=== PATIENT | male | born 1975 | race Caucasian/White ===

== ENCOUNTER → 2018-06-30 | Outpatient (CLI) | payer BC ==
--- NOTE | 2018-07-18 11:28 | ONC ---
[place] [address] RADIATION ONCOLOGY NOTE Name: PRIMO CUNHA Room: 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 HISTORY OF PRESENT ILLNESS: The patient is a 42-year-old gentleman who had enlarged right cervical lymph node about 6 months prior to diagnosis. He felt like he was swallowing reasonably well. He underwent an open biopsy of the right cervical lymph node by Dr. Greer and the final pathology revealed squamous cell carcinoma. He then underwent a direct laryngoscopy and biopsy by Dr. Leyva and the right tonsil was suspicious as a primary site, so the patient had a biopsy of the right superior tonsil. There was at least squamous cell carcinoma in situ. The patient had a neck CT on 04/29/2018, which revealed a 4.6 cm. x 3.4 cm.x 3.5 cm mass in the right submandibular area. There was no other enlarged lymphadenopathy. He had a PET scan on 05/27/2018, which revealed a hypermetabolic 1.5 cm mass with a maximum uptake of 11 at the right palatine tonsil consistent with a tonsillar malignancy. 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 There were 17 lymph nodes, none of which had malignancy and the margins were not involved with cancer. The lymph node that Dr. Greer resected had invasive squamous cell carcinoma that was well differentiated and that was removed on 05/05/2018. The size of that lymph node 3.6 cm and there was an area of extranodal extension that was 1 mm. He is still healing up from his operation and he presents to be considered for radiation therapy. The cancer conference recommended considering radiation and chemotherapy. The patient said that the surgeon, Dr. Leyva, told him that just post-operative radiation therapy itself is adequate since he had negative margins. He presents to be considered for radiation therapy. PAST MEDICAL AND PAST SURGICAL HISTORY: Basically unremarkable. SOCIAL HISTORY: He did chew tobacco since age of 12. He was a former smoker, and he smoked about 1 pack per day, and he quit smoking around 2007. Ethanol: [place] [address] RADIATION ONCOLOGY NOTE Name: PRIMO CUNHA [id number] Admission: 06/30/18 Attend Phys: Jovany Villatoro MD Discharge: Date of : 71 Report #: [id number] he drinks about 2-4 beers per day. MEDICATIONS: Include Tylenol as needed, allopurinol, Xanax as needed, Colace as needed, Neurontin, Claritin, Prilosec, Roxicodone as needed, Zoloft. ALLERGIES: He has no known drug allergies. REVIEW OF SYSTEMS: GENERAL: He had some weight loss after his tonsillectomy. SKIN: He denied having any color changes or itching. LYMPH NODES: He denied having enlarged or painful glands in the neck. ENDOCRINE: He denied having any hot or cold intolerance. HEMATOLOGY AND IMMUNOLOGY: He said that he had a procedure for a blood clot. HEAD AND NECK: He had no complaints of vertigo. MUSCULOSKELETAL: He has some incisional pain in the head and neck area. RESPIRATORY: He says he has a nonproductive cough. CARDIOVASCULAR: The patient denied having palpitations. GASTROINTESTINAL: He denied having nausea or vomiting. NEUROLOGIC: He deinied having focal weakness. PHYSICAL EXAMINATION: VITAL SIGNS: The patient's weight was 185.8 pounds, blood pressure 112/86, pulse 94, respirations 10, oxygen saturation 95%. GENERAL/PSYCHIATRIC: The patient was alert, oriented, and in no acute distress. LYMPH NODES: He had no palpable cervical or supraclavicular lymphadenopathy. Eyes: Pupils were equal, round, reactive to light and accommodation. Extraocular movements wereintact. Head, Ears, Nose, Throat: He has still healing incisional areas where he had his surgical procedures around the tonsillar area and also healing scars on the neck area. HEART: Had a regular rate and rhythm without murmur. LUNGS: were clear to auscultation. ABDOMEN: Not tender. Spleen was not palpable. Liver was at the costal margin. EXTREMITIES: No clubbing, cyanosis or edema. NEUROLOGIC: Cranial nerves II to XII were intact. Sensation was intact. The patient had 5/5 strength throughout his extremities. ASSESSMENT AND PLAN: The patient has findings consistent with a tonsillar cancer and there was 1 lymph node that had extracapsular extension, so he was offered postoperative radiation therapy. The cancer committee suggested chemotherapy and Dr. Schnayder told the patient that he probably would need chemotherapy, so I was going to refer him to medical oncologist, Dr. Lopez to finalize the decision on that issue. The risks, benefits, logistics of radiation therapy were explained to the patient in detail [place] [address] RADIATION ONCOLOGY NOTE Name: PRIMO CUNHA Room: [facility]#: [id number] Admission: 06/30/18 Attend Phys: Jovany Villatoro MD Discharge: Date of : 71 Report #: [id number] his witnessed, informed consent to proceed with radiation therapy and he will be scheduled for simulation. Thank you very much for this referral. <ELECTRONICALLY SIGNED> By: Jovany Villatoro MD 07/18/18 [id number] Villatoro MD /nt
== END ==
LOC: M.RTH 03:30
DX: Z08 Encounter for follow-up examination after completed treatment for malignant neoplasm (principal); C09.9 Malignant neoplasm of tonsil, unspecified; R59.0 Localized enlarged lymph nodes